=== PATIENT | male | born 2000 | race Caucasian/White ===

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

== ENCOUNTER 2025-04-18 16:01 | Outpatient (REF) | payer OTHER, SELFPAY ==
[2025-04-18 20:26] LABS: Calculated LDL 81 mg/dL (<100); Cholesterol 158 mg/dL (<200); HDL Cholesterol 68 mg/dL (>or=40); Triglyceride 49 mg/dL (<150)
== END 2025-04-18 16:02 | disposition home or self-care (01) ==
LOC: NCHCN 16:01
PROVIDERS: Visit Provider Family Medicine
DX: Z13.220 Encounter for screening for lipoid disorders (principal)
CPT/HCPCS: 80061